=== PATIENT | female | born 1970 | race Caucasian/White ===

== ENCOUNTER 2019-07-16 15:50 | Emergency (ER) | payer OTHER ==
[~2019-07-16] VITALS: Ht 160 cm; Wt 54.4 kg
[2019-07-16 15:51] VITALS: BP 100/78
--- NOTE | 2019-07-16 15:51 | NUR ---
PATIENT AMBULATED TO CHAIR D.
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
[2019-07-16] MEDS ORDERED: LORazepam 1 MG TAB PO ONE (16:35)
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
[2019-07-16 18:08] VITALS: BP 109/65
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
== END 2019-07-16 18:08 | disposition home or self-care (01) ==
LOC: MED 15:50
DX: S40.022A Contusion of left upper arm, initial encounter (principal); S40.021A Contusion of right upper arm, initial encounter; F41.9 Anxiety disorder, unspecified; Y04.2XXA Assault by strike against or bumped into by another person, initial encounter; Y93.89 Activity, other specified; Y92.89 Other specified places as the place of occurrence of the external cause; Y99.8 Other external cause status
CPT/HCPCS: 73090; 81025; 99283

== ENCOUNTER 2019-07-26 16:42 | Emergency (ER) | payer OTHER ==
[~2019-07-26] VITALS: Ht 154.9 cm; Wt 50.3 kg
[2019-07-26 16:47] VITALS: BP 110/96
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
--- NOTE | 2019-07-26 19:06 | NUR ---
GAVE REPORT TO EFREN GALVEZ AND TRANSFERRED CARE.
--- NOTE | 2019-07-26 19:10 | NUR ---
REPORT RECEIVED FROM EFREN SÁNCHEZ.
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
--- NOTE | 2019-07-26 19:27 | NUR ---
Elizabeth avina in [facility] - 07/26/19 at [address] Lomeli examining patient.
[2019-07-26 20:01] VITALS: BP 110/96
== END 2019-07-26 20:01 | disposition home or self-care (01) ==
LOC: MED 16:42
DX: F41.9 Anxiety disorder, unspecified (principal); F31.9 Bipolar disorder, unspecified; Z76.0 Encounter for issue of repeat prescription
CPT/HCPCS: 99283

== ENCOUNTER 2020-07-10 11:24 | Emergency (ER) | payer OTHER ==
[~2020-07-10] VITALS: Ht 157.5 cm; Wt 51.3 kg
--- NOTE | 2020-07-10 11:24 | NUR ---
Patient BIBA BLS, transferred to bed 8. RN evaluating patient at bedside.
[2020-07-10 11:26] VITALS: BP 108/66
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
--- NOTE | 2020-07-10 12:01 | NUR ---
Patient taken to x-ray via wheelchair by tech.
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
--- NOTE | 2020-07-10 12:44 | NUR ---
Dr Reynolds at bedside examining patient
[2020-07-10] MEDS ORDERED: KETOROLAC 30 MG/ML VIAL IM ONE (12:55)
--- NOTE | 2020-07-10 13:00 | NUR ---
Patient refused Toradol IM. Dr Reynolds made aware.
--- NOTE | 2020-07-10 13:01 | NUR ---
PT PLACED IN SLING
[2020-07-10] MEDS ORDERED: ACETAMINOPHEN 325 MG TAB PO ONE (13:05)
--- NOTE | 2020-07-10 13:35 | NUR ---
Patient returned from CT via wheelchair.
[2020-07-10 14:02] VITALS: BP 105/65
--- NOTE | 2020-07-10 14:04 | NUR ---
cleared for d/c by Dr Reynolds; d/c with prescription & instructions on Shoulder Sprain; pt fully understands all materials given re c/c; has no further questions; aox4; VSS; ambulatory with steady gait; with a schoulder sling applied by Tech; no signs of acute distress.
== END 2020-07-10 14:00 | disposition home or self-care (01) ==
LOC: MED 11:24
DX: S46.912A Strain of unspecified muscle, fascia and tendon at shoulder and upper arm level, left arm, initial encounter (principal); F31.9 Bipolar disorder, unspecified; V49.9XXA Car occupant (driver) (passenger) injured in unspecified traffic accident, initial encounter; Y93.89 Activity, other specified; Y92.89 Other specified places as the place of occurrence of the external cause; Y99.8 Other external cause status
CPT/HCPCS: 72040; 72125; 73030; 99284; J1885

== ENCOUNTER 2020-12-20 20:51 | Emergency (ER) | payer OTHER ==
[~2020-12-20] VITALS: Ht 154.9 cm; Wt 54.4 kg
[2020-12-20 21:05] VITALS: BP 107/61
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
--- NOTE | 2020-12-21 00:16 | NUR ---
PT IS GETTING ANXIOUS TO LEAVE, REASSURANCE GIVEN. DR ALLRED AWARE
[2020-12-21 00:25] VITALS: BP 114/68
--- NOTE | 2020-12-21 00:25 | NUR ---
Patient discharged with v/s stable. Written and verbal after care instructions given and explained. Patient verbalized understanding. Ambulatory with steady gait. All questions addressed prior to discharge. Advised to follow up with PMD.
== END 2020-12-21 00:25 | disposition home or self-care (01) ==
LOC: MED 20:51
DX: T74.11XA Adult physical abuse, confirmed, initial encounter (principal); S60.222A Contusion of left hand, initial encounter; Y08.89XA Assault by other specified means, initial encounter; Y93.89 Activity, other specified; Y92.89 Other specified places as the place of occurrence of the external cause; Y99.8 Other external cause status
CPT/HCPCS: 73130; 99283

== ENCOUNTER 2022-10-29 13:23 | Emergency (ER) | payer OTHER ==
[~2022-10-29] VITALS: Ht 157.5 cm; Wt 54.4 kg
[2022-10-29 13:28] VITALS: BP 106/51
--- NOTE | 2022-10-29 13:32 | NUR ---
TO BED 11 VIA W/C NO DISTRESS
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
[2022-10-29] MEDS ORDERED: LID5T TP (13:58)
[2022-10-29] MEDS ORDERED: CYCL-711 PO (13:58)
[2022-10-29] MEDS ORDERED: NAPR-1704 PO (13:58)
[2022-10-29] MEDS ORDERED: KETOROLAC 30 MG/ML VIAL IM ONE (14:10)
[2022-10-29] MEDS ORDERED: CYCLOBENZAPRINE 10 MG TAB PO ONE (14:10)
[2022-10-29 14:40] VITALS: BP 110/59
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
--- NOTE | 2022-10-29 14:47 | NUR ---
The patient's care was reviewed and supervised by ED Agency Nurse 8, RN, RN.
== END 2022-10-29 14:40 | disposition home or self-care (01) ==
LOC: MED 13:23
DX: S93.492A Sprain of other ligament of left ankle, initial encounter (principal); S13.4XXA Sprain of ligaments of cervical spine, initial encounter; S80.01XA Contusion of right knee, initial encounter; V49.88XA Car occupant (driver) (passenger) injured in other specified transport accidents, initial encounter; Y93.89 Activity, other specified; Y92.89 Other specified places as the place of occurrence of the external cause; Y99.8 Other external cause status
CPT/HCPCS: 81025; 99283; J1885

== ENCOUNTER 2023-03-19 20:49 | Emergency (ER) | payer OTHER ==
[~2023-03-19] VITALS: Ht 154.9 cm; Wt 53.1 kg
[~2023-03-19 20:49] MED LIST: CYCL-711 PO; LID5T TP; NAPR-1704 PO
[2023-03-19 21:41] VITALS: BP 102/59; PULSE 91; RESP 18; TEMP 98; O2SAT 99
[2023-03-20] MEDS ORDERED: KETOROLAC 60 MG/2 ML VIAL IM ONE (00:55)
[2023-03-20] MEDS ORDERED: IBUP-2213 PO (01:01)
[2023-03-20] MEDS ORDERED: CEPH-588 PO (01:01)
[2023-03-20 01:30] VITALS: BP 102/59; PULSE 91; RESP 18; TEMP 98; O2SAT 99
== END 2023-03-20 01:30 | disposition home or self-care (01) ==
LOC: MED 20:49
DX: L03.115 Cellulitis of right lower limb (principal); F12.90 Cannabis use, unspecified, uncomplicated; Z79.899 Other long term (current) drug therapy; Z79.1 Long term (current) use of non-steroidal anti-inflammatories (NSAID)
CPT/HCPCS: 81002; 96372; 99283; J1885